=== PATIENT | male | born 1950 | race Caucasian/White ===

== ENCOUNTER 2022-06-10 13:30 | Outpatient (RCR) | payer MEDICARE, BC, SELFPAY ==
[2022-06-04 12:22] LABS: Basophils Absolute Auto 0.03 K/uL (0.00-0.30); Basophils Percent Auto 0.5 % (0.0-3.0); Eosinophils Absolute Auto 0.23 K/uL (0.00-0.50); Eosinophils Percent Auto 4.1 % (0.0-7.0); Hematocrit 29.4 % (37.0-53.0); Hemoglobin* 9.5 gm/dL (13.5-17.5); Immature Granulocytes Abs Auto 0.02 K/uL (0.00-0.30); Immature Granulocytes Pct Auto 0.4 %; Lymphocytes Percent Auto 11.4 % (20-44); Mean Corpuscular HGB Conc 32 gm/dL (32-36); Mean Corpuscular Hemoglobin 26 pg (26-34); Mean Corpuscular Volume 80 fL (80-100); Monocytes Percent Auto 14.3 % (0.0-11.0); Neutrophils Absolute Auto 3.88 K/uL (1.7-7.0); Neutrophils Percent Auto 69.3 % (42.0-72.0); Platelet Count* 210 K/uL (140-440); RDW Coefficient of Variation % 13.9 % (11.5-15.5); Red Blood Count 3.67 m/uL (4.30-5.90)
[2022-06-04 12:30] LABS: Slide Review Reflex No
[2022-06-04 12:45] LABS: Creatinine* 1.3 mg/dL (0.5-1.5); Estimated Glomerular Filt Rate 58 ml/min
[2022-06-04 12:46] LABS: Alanine Aminotransferase* 30 U/L (4-50); Alkaline Phosphatase* 70 U/L (40-150)
--- NOTE | 2022-06-05 07:54 | ONC.NURNOTE ---
labs from 06/04/22 faxed to [facility].
[2022-06-10 14:30] VITALS: BP 159/73; PULSE 74; RESP 16; TEMP 37.2; O2SAT 96
--- NOTE | 2022-06-10 16:47 | ONC.NURNOTE ---
Transplant team called before PICC line removed to be sure that no labs were needed today. Patient had message on phone that news writer read that said no labs needed today. PICC line removed without complications. 42 cm of line removed-tip intact-Upper arm circumference 25cm-external catheter out at site 1.5cm Scant amount of bleeding but patient complained of itchy skin and was itching close to site so patient told to get some lotion on and to be careful not to break skin. Sterile tegaderm applied to site for next 24 hours.
== END 2022-12-01 23:59 | disposition home or self-care (01) ==
LOC: CCIC 13:30
PROVIDERS: PCP Family Medicine; Referring Provider Family Medicine; Visit Provider Clinical Nurse Specialist
DX: J18.9 Pneumonia, unspecified organism (principal)
CPT/HCPCS: 36415; 36589; 36592; 82565; 84075; 84460; 85025; A4221

== ENCOUNTER 2022-07-14 09:09 | Emergency (ER) | payer MEDICARE, BC, SELFPAY ==
[2022-07-14] VITALS (9 sets, daily range): BP systolic 126–150; BP diastolic 68–80; PULSE 61–69; RESP 18; TEMP 36.3; O2SAT 95–99; BMI 21.6
[2022-07-14] MEDS: SODIUM CHLORIDE 0.9 % (FLUSH) 10 ML SYRINGE 5 ML IVF (10:00)
[2022-07-14 10:01] LABS: Troponin, Point-of-Care* 0.01 ng/ml (0.01-0.04)
[2022-07-14 10:02] LABS: Basophils Absolute Auto 0.02 K/uL (0.00-0.30); Basophils Percent Auto 0.3 % (0.0-3.0); Eosinophils Absolute Auto 0.16 K/uL (0.00-0.50); Eosinophils Percent Auto 2.2 % (0.0-7.0); Hematocrit 34.7 % (37.0-53.0); Hemoglobin* 11.3 gm/dL (13.5-17.5); Immature Granulocytes Abs Auto 0.02 K/uL (0.00-0.30); Immature Granulocytes Pct Auto 0.3 %; Lymphocytes Percent Auto 2.7 % (20-44); Mean Corpuscular HGB Conc 33 gm/dL (32-36); Mean Corpuscular Hemoglobin 26 pg (26-34); Mean Corpuscular Volume 79 fL (80-100); Monocytes Percent Auto 4.5 % (0.0-11.0); Platelet Count* 217 K/uL (140-440); RDW Coefficient of Variation % 14.5 % (11.5-15.5); Red Blood Count 4.41 m/uL (4.30-5.90); White Blood Count* 7.35 K/uL (4.50-11.00)
[2022-07-14] MEDS: ONDANSETRON 2 MG/ML inj 4 MG IVP (10:03)
[2022-07-14 10:06] LABS: Lactate* 0.9 mmol/L (0.5-1.9)
[2022-07-14 10:07] LABS: Slide Review Reflex No
--- NOTE | 2022-07-14 10:07 | ED.NURSE ---
pt vomitted small amount, dry heaving. zofran iv given
[2022-07-14 10:17] LABS: Albumin* 4.3 g/dL (3.3-5.0); Chloride* 110 mmol/L (96-114); D Dimer Quantitative* 1.15 ug/ml (0.00-0.50)
[2022-07-14 10:18] LABS: Potassium* 4.9 mmol/L (3.6-5.1); Sodium* 140 mmol/L (135-149)
[2022-07-14 10:20] LABS: Bilirubin Direct* 0.3 mg/dL (0.0-0.5); Bilirubin Total* 0.4 mg/dL (0.1-1.5); Carbon Dioxide* 25 mmol/L (20-32); Creatinine* 1.7 mg/dL (0.5-1.5); Est. Creatinine Clearance* 41.33; Estimated Glomerular Filt Rate 42 ml/min
[2022-07-14 10:21] LABS: Alanine Aminotransferase* 33 U/L (4-50); Alkaline Phosphatase* 77 U/L (40-150); Aspartate Amino Transferase* 44 U/L (12-35); Blood Urea Nitrogen* 46 mg/dL (7-30); Calcium* 9.2 mg/dL (8.4-10.6); Glucose* 113 mg/dL (60-115); Total Protein* 7.4 g/dL (6.0-8.3)
[2022-07-14 10:25] LABS: NT Pro B Type NatriureticPept* 634 pg/mL
[2022-07-14 10:26] LABS: C Reactive Protein* < 0.5 mg/dL (0.5-1.0)
[2022-07-14 10:41] LABS: PCR FLU A Negative PCR FLU A (Negative); PCR FLU B Negative PCR FLU B (Negative); PCR RSV Negative PCR RSV (Negative)
[2022-07-14] MEDS: ASPIRIN 81 MG TAB.CHEW 324 MG PO (10:42)
--- NOTE | 2022-07-14 10:43 | CRLHL7_ITS ---
For Patients: As a result of the Century Cures Act, medical imaging exams and procedure reports are released immediately into your electronic medical record. You may view this report before your referring provider. If you have questions, please contact your health care provider. INDICATION: Chest pain, history of lung transplant TECHNIQUE: CT chest PE was acquired with 95 cc Isovue 370 intravenous contrast. COMPARISON: None. FINDINGS: Heart and vasculature: Contrast opacification of the pulmonary arterial tree is adequate. No sign of pulmonary embolism. Shift of the heart into the left hemithorax. No pericardial effusion. Severe coronary atherosclerosis. Lungs and pleural: No pneumothorax or pleural effusion. Markedly decreased volume of the left hemithorax with diminutive left lung. Prominent honeycombing and interlobular septal thickening consistent with fibrosis. Hyperinflation of the right lung with suture line near the right mainstem bronchus consistent with the history of lung transplantation. Right middle lobe bronchus is not seen with complete atelectasis of the right middle lobe consistent with endobronchial mucous debris. Minimal interstitial emphysema adjacent to the right lower lobe bronchus with ground-glass opacities in the right lower lobe. Slight centrilobular nodularity. Lymph nodes/mediastinum: No mediastinal, hilar, or axillary adenopathy. Chest wall: No masses. Upper abdomen: Hepatic cysts, largest measuring 3.4 centimeters. Cyst at the upper pole of the right kidney measuring 4.2 centimeters. Colonic diverticulosis. Bones: Unremarkable for age. IMPRESSION: 1. No evidence of pulmonary embolus. 2. Ground-glass opacities and centrilobular nodularity within the right lower lobe suspicious for a bronchiolitis or viral pneumonia. Mild interstitial emphysema noted along the right lower lobe bronchus. 3. Apparent right middle lobe bronchus occlusion with complete atelectasis of the right middle lobe. 4. Advanced pulmonary fibrosis left lung with marked volume loss in left hemithorax. Please note that all CT scans at this facility use dose modulation, iterative reconstruction, and/or weight-based dosing when appropriate to reduce radiation dose to as low as reasonably achievable. Dictated by Sanjeev Eduardo MD @ 07/14/2022 12:05:54 PM (Electronically Signed)
--- NOTE | 2022-07-14 10:44 | ED.NURSE ---
pt has been napping. nausea improved. pt took transplant meds from home
[2022-07-14 10:48] LABS: SARS PCR* Negative SARS-CoV-2 (Negative)
[2022-07-14 12:25] LABS: Troponin, Point-of-Care* 0.01 ng/ml (0.01-0.04)
--- NOTE | 2022-07-14 12:59 | ED.GENADULT ---
HPI - General Adult General Date Seen: 07/14/22 Chief complaint: Chest Pain Stated complaint: Chest pain, nausea Time Seen by Provider: 07/14/22 09:23 Source: patient Mode of arrival: ambulatory Limitations: no limitations History of Present Illness HPI narrative: Patient is a 72-year-old male who presents for evaluation of chest tightness with onset this morning at about 6:30 a.m. when he woke up. Symptoms lasted for about an hour and then resolved spontaneously. Describes the pain as a tightness across his chest without radiation, mild to moderate in intensity. He has had occasional symptoms like this in the past, though he has not been seen for it previoulsy. He had some associated nausea, he had 1 small emesis and thinks maybe he felt better after that. He does have a history of lung transplant 2020 secondary to pulmonary fibrosis. He has not had significant shortness of breath, denies pleuritic chest pain or fever. No unusual leg pain or swelling. No history of coronary artery disease. No recent exertional chest pain. He has had some occasional ?cramps in the right upper quadrant, but has not had any of those today. Has not had any abdominal pain or diarrhea. He believes he has had a couple of stress tests in the past couple of years, one before his lung transplant and one since. Related Data Home Medications Medication Instructions Recorded Confirmed acetaminophen 500 mg tablet 500 mg PO Q4-6H PRN 02/07/22 02/07/22 aspirin 81 mg tablet,delayed 81 mg PO DAILY 02/07/22 02/07/22 release azithromycin 250 mg tablet 250 mg PO .UD 02/07/22 02/07/22 calcium citrate 200 mg 2 tab PO BID 02/07/22 02/07/22 calcium-vitamin D3 6.25 mcg (250 unit) tablet cholecalciferol (vitamin D3) 50 50 mcg PO DAILY 02/07/22 02/07/22 mcg (2,000 unit) tablet furosemide 20 mg tablet 20 mg PO DAILY 02/07/22 02/07/22 magnesium oxide 400 mg (241.3 mg 400 mg PO BID 02/07/22 02/07/22 magnesium) tablet melatonin 5 mg capsule 5 mg PO .Bedtime 02/07/22 02/07/22 omeprazole 20 mg tablet,delayed 20 mg PO DAILY 02/07/22 02/07/22 release polyethylene glycol 3350 17 17 g PO DAILY PRN 02/07/22 02/07/22 gram/dose oral powder posaconazole 100 mg tablet,delayed 200 mg PO QDAY 02/07/22 02/07/22 release (Noxafil) prednisone 5 mg tablet 5 mg PO DAILY 02/07/22 02/07/22 rosuvastatin 10 mg tablet 10 mg PO .Bedtime 02/07/22 02/07/22 sirolimus 0.5 mg tablet 0.5 mg PO .Daily With Am Meal 02/07/22 02/07/22 sulfamethoxazole 400 1 tab PO .UD 02/07/22 02/07/22 mg-trimethoprim 80 mg tablet (Bactrim) Allergies Allergy/AdvReac Type Severity Reaction Status Date / Time No Known Drug Allergies Allergy Verified 07/14/22 10:55 Review of Systems Status of ROS: Reports: 10 or more systems reviewed and unremarkable except as noted in History and below [facility] Medical History History of colonic polyps (10/02/17) History of seasonal allergies Surgical History History of bilateral inguinal hernia repair History of colonoscopy (10/02/17) History of repair of right rotator cuff (2016) History of umbilical hernia repair Status post lung transplantation Social History Smoking Status: Never smoker How often do you have a drink containing alcohol: never AUDIT-C Alcohol total score: 0 Non-prescribed substance use: denies use service: Yes Exam Narrative: Exam Narrative: Vital signs as noted above. In general, an alert, nontoxic male, looks comfortable. Head: Normocephalic, atraumatic. Eyes: Pupils are equal reactive. Extraocular movements are full. Conjunctivae are normal. ENT: Mucous membranes are moist. Throat is normal. Neck: Supple without lymphadenopathy. Heart: Regular rate and rhythm. No murmur or rub. Lungs: Clear bilaterally. No increased work of breathing, crackles or wheezes. Abdomen: Soft and nontender. No organomegaly. Specifically no right upper quadrant tenderness, negative Guerra sign. Extremities: Well perfused. No edema. No calf tenderness. Pulses intact. Neurologic: Patient is alert and oriented to person and place. Speech is fluent. Face is symmetric. Moves all extremities equally. Affect: Normal. Skin: Warm and dry. Well perfused. Const: Vital Signs, click to edit/add: Vital Signs - 24 hr 07/14/22 09:23 07/14/22 09:37 07/14/22 09:40 Temperature 97.3 F L Pulse Rate 67 66 Pulse Rate [Right Pulse Oximeter] 63 Respiratory Rate 18 Blood Pressure 133/73 Blood Pressure [Ri ght Upper Arm] 150/80 H Pulse Oximetry 95 98 99 Oxygen Delivery Me thod Room Air 07/14/22 10:41 07/14/22 12:04 07/14/22 12:05 Temperature Pulse Rate 69 69 Pulse Rate [Right Pulse Oximeter] Respiratory Rate Blood Pressure 136/71 149/78 H Blood Pressure [Ri ght Upper Arm] Pulse Oximetry 97 95 Oxygen Delivery Me thod 07/14/22 12:30 07/14/22 13:00 Temperature Pulse Rate 69 66 Pulse Rate [Right Pulse Oximeter] Respiratory Rate Blood Pressure Blood Pressure [Ri ght Upper Arm] Pulse Oximetry 95 96 Oxygen Delivery Me thod Course Course Hospital Course: On arrival, patient had an EKG which by my review shows a normal sinus rhythm, ventricular rate of 65 beats per minute. No acute ST segment changes. T-waves are unremarkable. Patient did have 1 small emesis here, had 4 mg of Zofran IV. Reeves improved. Did not have any further chest discomfort. Troponin was 0 hours and 2-1/2 hours, which would be over 5 hours after onset of his pain. Labs were notable for a normal white blood cell count but with a left shift of 90% neutrophils. Hemoglobin 11.3. D-dimer was elevated at 1.15, metabolic panel notable for a BUN of 46 and a creatinine of 1.7. Electrolytes normal. Lactate 0.9. LFTs unremarkable. CRP was normal. BNP mildly elevated at 634. COVID influenza and RSV were negative. Due to the elevated D-dimer elected to do a CT scan with contrast of the chest. By my review, there were no large central PE. Final radiology report was as follows: 1. No evidence of pulmonary embolus. 2. Ground-glass opacities and centrilobular nodularity within the right lower lobe suspicious for a bronchiolitis or viral pneumonia. Mild interstitial emphysema noted along the right lower lobe bronchus. 3. Apparent right middle lobe bronchus occlusion with complete atelectasis of the right middle lobe. 4. Advanced pulmonary fibrosis left lung with marked volume loss in left hemithorax. I have discussed these findings with Dr. Salinas, on the lung transplant team at [facility]. He said that he believes this is largely baseline for this patient. He also said that the chest symptoms may be baseline for him as well. I discussed all this with the patient and his . We will go ahead and get bedside spirometry here, according to Dr. Salinas his baseline last week was 1.87. Dr. Salinas is going to see him in the next 1-2 weeks at [facility]. We have discussed that at this time I do not have a clear cause for his chest pain. He does not have any abdominal pain or tenderness, does not have clear signs or symptoms suggesting cholecystitis or biliary colic. Troponins are negative x2, EKG is unremarkable. I do not see anything to suggest acute coronary syndrome although we have discussed that this does not rule out the possibility of coronary artery disease. If he has persistent or worsening chest pain, he should return to the emergency department. He does have evidence of some viral changes on CT although he says this is usual for him. His white count is normal although he is significantly immune suppressed. He is afebrile, heart rate is normal, he does not have localizing signs and symptoms for infection. Does not complain of shortness of breath, cough. I think it is reasonable to let him go home. I have stressed that he should have a low threshold for coming back if worsening. Otherwise, he will follow-up with [facility] in the next 1-2 weeks. I have asked him to talk with them about the possibility of testing for coronary artery disease either with stress test or CT coronary angiogram. Vital Signs Vital signs: Initial Vital Signs Temperature 97.3 F L 07/14/22 09:23 Temperature Source Temporal Artery Scan 07/14/22 09:23 Pulse Rate 63 07/14/22 09:23 Respiratory Rate 18 07/14/22 09:23 Blood Pressure 150/80 H 07/14/22 09:23 Blood Pressure Mean 103 07/14/22 09:23 Blood Pressure Position Sitting 07/14/22 09:23 Pulse Oximetry 95 07/14/22 09:23 Oxygen Delivery Method 07/14/22 09:23 Vital Signs Temperature 97.3 F L 07/14/22 09:23 Pulse Rate 63 07/14/22 09:23 Respiratory Rate 18 07/14/22 09:23 Blood Pressure 150/80 H 07/14/22 09:23 Pulse Oximetry 95 07/14/22 09:23 Oxygen Delivery Method 07/14/22 09:23 Temperature 97.3 F L 07/14/22 09:23 Pulse Rate 66 07/14/22 13:00 Respiratory Rate 18 07/14/22 09:23 Blood Pressure 149/78 H 07/14/22 12:05 Pulse Oximetry 96 07/14/22 13:00 Oxygen Delivery Method 07/14/22 09:23 Medical Decision Making Lab Data Labs: Lab Results 07/14/22 07/14/22 07/14/22 Range/Units 09:31 09:31 09:31 WBC 7.35 (4.50-11.00) K/uL RBC 4.41 (4.30-5.90) m/uL Hgb 11.3 L (13.5-17.5) gm/dL Hct 34.7 L (37.0-53.0) % MCV 79 L (80-100) fL MCH 26 (26-34) pg MCHC 33 (32-36) gm/dL RDW Coeff of James 14.5 (11.5-15.5) % Plt Count 217 (140-440) K/uL Neut % (Auto) 90.0 H (42.0-72.0) % Lymph % (Auto) 2.7 L (20-44) % [place] % (Auto) 4.5 (0.0-11.0) % Eos % (Auto) 2.2 (0.0-7.0) % Baso % (Auto) 0.3 (0.0-3.0) % Neut # (Auto) 6.60 (1.7-7.0) K/uL Lymph # (Auto) 0.20 L (0.90-2.90) K/uL [place] # (Auto) 0.30 (0.00-0.90) K/UL Eos # (Auto) 0.16 (0.00-0.50) K/uL Baso # (Auto) 0.02 (0.00-0.30) K/uL D-Dimer Quant (PE/DVT) 1.15 H (0.00-0.50) ug/ml Sodium 140 (135-149) mmol/L Potassium 4.9 (3.6-5.1) mmol/L Chloride 110 (96-114) mmol/L Carbon Dioxide 25 (20-32) mmol/L BUN 46 H (7-30) mg/dL Creatinine 1.7 H (0.5-1.5) mg/dL Estimated Creat Clear 41.33 Estimated GFR 42 ml/min Glucose 113 (60-115) mg/dL Lactate (0.5-1.9) mmol/L Calcium 9.2 (8.4-10.6) mg/dL Total Bilirubin 0.4 (0.1-1.5) mg/dL Direct Bilirubin 0.3 (0.0-0.5) mg/dL AST 44 H (12-35) U/L ALT 33 (4-50) U/L Alkaline Phosphatase 77 (40-150) U/L C-Reactive Protein < 0.5 L (0.5-1.0) mg/dL NT-Pro-B Natriuret Pep 634 pg/mL Total Protein 7.4 (6.0-8.3) g/dL Albumin 4.3 (3.3-5.0) g/dL SARS-CoV-2 (PCR) (Negative) Influenza Type A (PCR) (Negative) Influenza Type B (PCR) (Negative) RSV (PCR) (Negative) POC Troponin I (0.01-0.04) ng/ml 07/14/22 07/14/22 07/14/22 Range/Units 09:31 09:40 09:40 WBC (4.50-11.00) K/uL RBC (4.30-5.90) m/uL Hgb (13.5-17.5) gm/dL Hct (37.0-53.0) % MCV (80-100) fL MCH (26-34) pg MCHC (32-36) gm/dL RDW Coeff of James (11.5-15.5) % Plt Count (140-440) K/uL Neut % (Auto) (42.0-72.0) % Lymph % (Auto) (20-44) % [place] % (Auto) (0.0-11.0) % Eos % (Auto) (0.0-7.0) % Baso % (Auto) (0.0-3.0) % Neut # (Auto) (1.7-7.0) K/uL Lymph # (Auto) (0.90-2.90) K/uL [place] # (Auto) (0.00-0.90) K/UL Eos # (Auto) (0.00-0.50) K/uL Baso # (Auto) (0.00-0.30) K/uL D-Dimer Quant (PE/DVT) (0.00-0.50) ug/ml Sodium (135-149) mmol/L Potassium (3.6-5.1) mmol/L Chloride (96-114) mmol/L Carbon Dioxide (20-32) mmol/L BUN (7-30) mg/dL Creatinine (0.5-1.5) mg/dL Estimated Creat Clear Estimated GFR ml/min Glucose (60-115) mg/dL Lactate 0.9 (0.5-1.9) mmol/L Calcium (8.4-10.6) mg/dL Total Bilirubin (0.1-1.5) mg/dL Direct Bilirubin (0.0-0.5) mg/dL AST (12-35) U/L ALT (4-50) U/L Alkaline Phosphatase (40-150) U/L C-Reactive Protein (0.5-1.0) mg/dL NT-Pro-B Natriuret Pep pg/mL Total Protein (6.0-8.3) g/dL Albumin (3.3-5.0) g/dL SARS-CoV-2 (PCR) Negative SARS-CoV-2 (Negative) Influenza Type A (PCR) Negative PCR FLU A (Negative) Influenza Type B (PCR) Negative PCR FLU B (Negative) RSV (PCR) Negative PCR RSV (Negative) POC Troponin I 0.01 (0.01-0.04) ng/ml 07/14/22 Range/Units 12:08 WBC (4.50-11.00) K/uL RBC (4.30-5.90) m/uL Hgb (13.5-17.5) gm/dL Hct (37.0-53.0) % MCV (80-100) fL MCH (26-34) pg MCHC (32-36) gm/dL RDW Coeff of James (11.5-15.5) % Plt Count (140-440) K/uL Neut % (Auto) (42.0-72.0) % Lymph % (Auto) (20-44) % [place] % (Auto) (0.0-11.0) % Eos % (Auto) (0.0-7.0) % Baso % (Auto) (0.0-3.0) % Neut # (Auto) (1.7-7.0) K/uL Lymph # (Auto) (0.90-2.90) K/uL [place] # (Auto) (0.00-0.90) K/UL Eos # (Auto) (0.00-0.50) K/uL Baso # (Auto) (0.00-0.30) K/uL D-Dimer Quant (PE/DVT) (0.00-0.50) ug/ml Sodium (135-149) mmol/L Potassium (3.6-5.1) mmol/L Chloride (96-114) mmol/L Carbon Dioxide (20-32) mmol/L BUN (7-30) mg/dL Creatinine (0.5-1.5) mg/dL Estimated Creat Clear Estimated GFR ml/min Glucose (60-115) mg/dL Lactate (0.5-1.9) mmol/L Calcium (8.4-10.6) mg/dL Total Bilirubin (0.1-1.5) mg/dL Direct Bilirubin (0.0-0.5) mg/dL AST (12-35) U/L ALT (4-50) U/L Alkaline Phosphatase (40-150) U/L C-Reactive Protein (0.5-1.0) mg/dL NT-Pro-B Natriuret Pep pg/mL Total Protein (6.0-8.3) g/dL Albumin (3.3-5.0) g/dL SARS-CoV-2 (PCR) (Negative) Influenza Type A (PCR) (Negative) Influenza Type B (PCR) (Negative) RSV (PCR) (Negative) POC Troponin I 0.01 (0.01-0.04) ng/ml Discharge Plan Discharge Prescriptions: No Action cholecalciferol (vitamin D3) 50 mcg (2,000 unit) tablet 50 mcg PO DAILY rosuvastatin 10 mg tablet 10 mg PO .Bedtime melatonin 5 mg capsule 5 mg PO .Bedtime acetaminophen 500 mg tablet 500 mg PO Q4-6H PRN Rx Instructions: NO MORE THAN 4000 MG/DAY aspirin 81 mg tablet,delayed release (DR/EC) 81 mg PO DAILY calcium citrate-vitamin D3 200 mg-6.25 mcg (250 unit) tablet 2 tab PO BID furosemide 20 mg tablet 20 mg PO DAILY magnesium oxide 400 mg (241.3 mg magnesium) tablet 400 mg PO BID omeprazole 20 mg tablet,delayed release (DR/EC) 20 mg PO DAILY polyethylene glycol 3350 17 gram/dose powder 17 g PO DAILY PRN sirolimus 0.5 mg tablet 0.5 mg PO .Daily With Am Meal sulfamethoxazole-trimethoprim [Bactrim] 400-80 mg tablet 1 tab PO .UD Rx Instructions: -- azithromycin 250 mg tablet 250 mg PO .UD Rx Instructions: -- prednisone 5 mg tablet 5 mg PO DAILY posaconazole [Noxafil] 100 mg tablet,delayed release (DR/EC) 200 mg PO QDAY Rx Instructions: take with morning meal *NAME BRAND* Follow Up/Referrals: Sekou Anthony MD [Primary Care Provider] -
--- NOTE | 2022-07-26 11:33 | ED_ITS ---
HPI - General Adult General Chief complaint: Chest Pain Stated complaint: Chest pain, nausea Time Seen by Provider: 07/14/22 09:23 Source: patient Mode of arrival: ambulatory Limitations: no limitations History of Present Illness HPI narrative: Patient is a 72-year-old male with underlying Related Data Home Medications Medication Instructions Recorded Confirmed acetaminophen 500 mg tablet 500 mg PO Q4-6H PRN 02/07/22 02/07/22 aspirin 81 mg tablet,delayed 81 mg PO DAILY 02/07/22 02/07/22 release azithromycin 250 mg tablet 250 mg PO .UD 02/07/22 02/07/22 calcium citrate 200 mg 2 tab PO BID 02/07/22 02/07/22 calcium-vitamin D3 6.25 mcg (250 unit) tablet cholecalciferol (vitamin D3) 50 50 mcg PO DAILY 02/07/22 02/07/22 mcg (2,000 unit) tablet furosemide 20 mg tablet 20 mg PO DAILY 02/07/22 02/07/22 magnesium oxide 400 mg (241.3 mg 400 mg PO BID 02/07/22 02/07/22 magnesium) tablet melatonin 5 mg capsule 5 mg PO .Bedtime 02/07/22 02/07/22 omeprazole 20 mg tablet,delayed 20 mg PO DAILY 02/07/22 02/07/22 release polyethylene glycol 3350 17 17 g PO DAILY PRN 02/07/22 02/07/22 gram/dose oral powder posaconazole 100 mg tablet,delayed 200 mg PO QDAY 02/07/22 02/07/22 release (Noxafil) prednisone 5 mg tablet 5 mg PO DAILY 02/07/22 02/07/22 rosuvastatin 10 mg tablet 10 mg PO .Bedtime 02/07/22 02/07/22 sirolimus 0.5 mg tablet 0.5 mg PO .Daily With Am Meal 02/07/22 02/07/22 sulfamethoxazole 400 1 tab PO .UD 02/07/22 02/07/22 mg-trimethoprim 80 mg tablet (Bactrim) Allergies Allergy/AdvReac Type Severity Reaction Status Date / Time No Known Drug Allergies Allergy Verified 07/14/22 10:55 [facility] Medical History History of colonic polyps (10/02/17) History of seasonal allergies Surgical History History of bilateral inguinal hernia repair History of colonoscopy (10/02/17) History of repair of right rotator cuff (2017) History of umbilical hernia repair Status post lung transplantation Social History Smoking Status: Never smoker How often do you have a drink containing alcohol: never AUDIT-C Alcohol total score: 0 Non-prescribed substance use: denies use service: Yes Course Course Hospital Course: On arrival, patient had an EKG which by my review shows a normal sinus rhythm, ventricular rate of 65 beats per minute. No acute ST segment changes. T-waves are unremarkable. Patient did have 1 small emesis here, had 4 mg of Zofran IV. [place] improved. Did not have any further chest discomfort. Troponin was 0 hours and 2-1/2 hours, which would be over 5 hours after onset of his pain. Labs were notable for a normal white blood cell count but with a left shift of 90% neutrophils. Hemoglobin 11.3. D-dimer was elevated at 1.15, metabolic panel notable for a BUN of 46 and a creatinine of 1.7. Electrolytes normal. Lactate 0.9. LFTs unremarkable. CRP was normal. BNP mildly elevated at 634. COVID influenza and RSV were negative. Due to the elevated D-dimer elected to do a CT scan with contrast of the chest. By my review, there were no large central PE. Final radiology report was as follows: 1. No evidence of pulmonary embolus. 2. Ground-glass opacities and centrilobular nodularity within the right lower lobe suspicious for a bronchiolitis or viral pneumonia. Mild interstitial emphysema noted along the right lower lobe bronchus. 3. Apparent right middle lobe bronchus occlusion with complete atelectasis of the right middle lobe. 4. Advanced pulmonary fibrosis left lung with marked volume loss in left hemithorax. I have discussed these findings with Dr. Salinas, on the lung transplant team at [facility]. He said that he believes this is largely baseline for this patient. He also said that the chest symptoms may be baseline for him as well. I discussed all this with the patient and his . We will go ahead and get bedside spirometry here, according to Dr. Salinas his baseline last week was 1.87. Dr. Salinas is going to see him in the next 1-2 weeks at [place]. We have discussed that at this time I do not have a clear cause for his chest pain. He does not have any abdominal pain or tenderness, does not have clear signs or symptoms suggesting cholecystitis or biliary colic. Troponins are negative x2, EKG is unremarkable. I do not see anything to suggest acute coronary syndrome although we have discussed that this does not rule out the possibility of coronary artery disease. If he has persistent or worsening chest pain, he should return to the emergency department. He does have evidence of some viral changes on CT although he says this is usual for him. His white count is normal although he is significantly immune suppressed. He is afebrile, heart rate is normal, he does not have localizing signs and symptoms for infection. Does not complain of shortness of breath, cough. I think it is reasonable to let him go home. I have stressed that he should have a low threshold for coming back if worsening. Otherwise, he will follow-up with [facility] in the next 1-2 weeks. I have asked him to talk with them about the possibility of testing for coronary artery disease either with stress test or CT coronary angiogram. Vital Signs Vital signs: Initial Vital Signs Temperature 97.3 F L 07/14/22 09:23 Temperature Source Temporal Artery Scan 07/14/22 09:23 Pulse Rate 63 07/14/22 09:23 Respiratory Rate 18 07/14/22 09:23 Blood Pressure 150/80 H 07/14/22 09:23 Blood Pressure Mean 103 07/14/22 09:23 Blood Pressure Position Sitting 07/14/22 09:23 Pulse Oximetry 95 07/14/22 09:23 Oxygen Delivery Method 07/14/22 09:23 Vital Signs Temperature 97.3 F L 07/14/22 09:23 Pulse Rate 63 07/14/22 09:23 Respiratory Rate 18 07/14/22 09:23 Blood Pressure 150/80 H 07/14/22 09:23 Pulse Oximetry 95 07/14/22 09:23 Oxygen Delivery Method 07/14/22 09:23 Temperature 97.3 F L 07/14/22 09:23 Pulse Rate 61 07/14/22 13:51 Respiratory Rate 18 07/14/22 13:51 Blood Pressure 126/68 07/14/22 13:51 Pulse Oximetry 98 07/14/22 13:51 Oxygen Delivery Method 07/14/22 13:51 Medical Decision Making Lab Data Labs: Lab Results 07/14/22 07/14/22 07/14/22 Range/Units 09:31 09:31 09:31 WBC 7.35 (4.50-11.00) K/uL RBC 4.41 (4.30-5.90) m/uL Hgb 11.3 L (13.5-17.5) gm/dL Hct 34.7 L (37.0-53.0) % MCV 79 L (80-100) fL MCH 26 (26-34) pg MCHC 33 (32-36) gm/dL RDW Coeff of James 14.5 (11.5-15.5) % Plt Count 217 (140-440) K/uL Neut % (Auto) 90.0 H (42.0-72.0) % Lymph % (Auto) 2.7 L (20-44) % [place] % (Auto) 4.5 (0.0-11.0) % Eos % (Auto) 2.2 (0.0-7.0) % Baso % (Auto) 0.3 (0.0-3.0) % Neut # (Auto) 6.60 (1.7-7.0) K/uL Lymph # (Auto) 0.20 L (0.90-2.90) K/uL [place] # (Auto) 0.30 (0.00-0.90) K/UL Eos # (Auto) 0.16 (0.00-0.50) K/uL Baso # (Auto) 0.02 (0.00-0.30) K/uL D-Dimer Quant (PE/DVT) 1.15 H (0.00-0.50) ug/ml Sodium 140 (135-149) mmol/L Potassium 4.9 (3.6-5.1) mmol/L Chloride 110 (96-114) mmol/L Carbon Dioxide 25 (20-32) mmol/L BUN 46 H (7-30) mg/dL Creatinine 1.7 H (0.5-1.5) mg/dL Estimated Creat Clear 41.33 Estimated GFR 42 ml/min Glucose 113 (60-115) mg/dL Lactate (0.5-1.9) mmol/L Calcium 9.2 (8.4-10.6) mg/dL Total Bilirubin 0.4 (0.1-1.5) mg/dL Direct Bilirubin 0.3 (0.0-0.5) mg/dL AST 44 H (12-35) U/L ALT 33 (4-50) U/L Alkaline Phosphatase 77 (40-150) U/L C-Reactive Protein < 0.5 L (0.5-1.0) mg/dL NT-Pro-B Natriuret Pep 634 pg/mL Total Protein 7.4 (6.0-8.3) g/dL Albumin 4.3 (3.3-5.0) g/dL SARS-CoV-2 (PCR) (Negative) Influenza Type A (PCR) (Negative) Influenza Type B (PCR) (Negative) RSV (PCR) (Negative) POC Troponin I (0.01-0.04) ng/ml 07/14/22 07/14/22 07/14/22 Range/Units 09:31 09:40 09:40 WBC (4.50-11.00) K/uL RBC (4.30-5.90) m/uL Hgb (13.5-17.5) gm/dL Hct (37.0-53.0) % MCV (80-100) fL MCH (26-34) pg MCHC (32-36) gm/dL RDW Coeff of James (11.5-15.5) % Plt Count (140-440) K/uL Neut % (Auto) (42.0-72.0) % Lymph % (Auto) (20-44) % [place] % (Auto) (0.0-11.0) % Eos % (Auto) (0.0-7.0) % Baso % (Auto) (0.0-3.0) % Neut # (Auto) (1.7-7.0) K/uL Lymph # (Auto) (0.90-2.90) K/uL [place] # (Auto) (0.00-0.90) K/UL Eos # (Auto) (0.00-0.50) K/uL Baso # (Auto) (0.00-0.30) K/uL D-Dimer Quant (PE/DVT) (0.00-0.50) ug/ml Sodium (135-149) mmol/L Potassium (3.6-5.1) mmol/L Chloride (96-114) mmol/L Carbon Dioxide (20-32) mmol/L BUN (7-30) mg/dL Creatinine (0.5-1.5) mg/dL Estimated Creat Clear Estimated GFR ml/min Glucose (60-115) mg/dL Lactate 0.9 (0.5-1.9) mmol/L Calcium (8.4-10.6) mg/dL Total Bilirubin (0.1-1.5) mg/dL Direct Bilirubin (0.0-0.5) mg/dL AST (12-35) U/L ALT (4-50) U/L Alkaline Phosphatase (40-150) U/L C-Reactive Protein (0.5-1.0) mg/dL NT-Pro-B Natriuret Pep pg/mL Total Protein (6.0-8.3) g/dL Albumin (3.3-5.0) g/dL SARS-CoV-2 (PCR) Negative SARS-CoV-2 (Negative) Influenza Type A (PCR) Negative PCR FLU A (Negative) Influenza Type B (PCR) Negative PCR FLU B (Negative) RSV (PCR) Negative PCR RSV (Negative) POC Troponin I 0.01 (0.01-0.04) ng/ml 07/14/22 Range/Units 12:08 WBC (4.50-11.00) K/uL RBC (4.30-5.90) m/uL Hgb (13.5-17.5) gm/dL Hct (37.0-53.0) % MCV (80-100) fL MCH (26-34) pg MCHC (32-36) gm/dL RDW Coeff of James (11.5-15.5) % Plt Count (140-440) K/uL Neut % (Auto) (42.0-72.0) % Lymph % (Auto) (20-44) % [place] % (Auto) (0.0-11.0) % Eos % (Auto) (0.0-7.0) % Baso % (Auto) (0.0-3.0) % Neut # (Auto) (1.7-7.0) K/uL Lymph # (Auto) (0.90-2.90) K/uL [place] # (Auto) (0.00-0.90) K/UL Eos # (Auto) (0.00-0.50) K/uL Baso # (Auto) (0.00-0.30) K/uL D-Dimer Quant (PE/DVT) (0.00-0.50) ug/ml Sodium (135-149) mmol/L Potassium (3.6-5.1) mmol/L Chloride (96-114) mmol/L Carbon Dioxide (20-32) mmol/L BUN (7-30) mg/dL Creatinine (0.5-1.5) mg/dL Estimated Creat Clear Estimated GFR ml/min Glucose (60-115) mg/dL Lactate (0.5-1.9) mmol/L Calcium (8.4-10.6) mg/dL Total Bilirubin (0.1-1.5) mg/dL Direct Bilirubin (0.0-0.5) mg/dL AST (12-35) U/L ALT (4-50) U/L Alkaline Phosphatase (40-150) U/L C-Reactive Protein (0.5-1.0) mg/dL NT-Pro-B Natriuret Pep pg/mL Total Protein (6.0-8.3) g/dL Albumin (3.3-5.0) g/dL SARS-CoV-2 (PCR) (Negative) Influenza Type A (PCR) (Negative) Influenza Type B (PCR) (Negative) RSV (PCR) (Negative) POC Troponin I 0.01 (0.01-0.04) ng/ml Discharge Plan Discharge Clinical Impression: Lung transplant status, Chest pain Patient Disposition: Home, Self-Care Condition: Improved Instructions: Chest Pain (DC) Additional Instructions: Follow-up with Dr. Salinas in the next 1-2 weeks as discussed. Please ask about further evaluation for chest pain at [place] to include stress test or CT coronary angiogram to evaluate for possible coronary artery disease. If at any time you have severe or persistent chest pain in the meantime, return to the emergency department. Prescriptions: No Action cholecalciferol (vitamin D3) 50 mcg (2,000 unit) tablet 50 mcg PO DAILY rosuvastatin 10 mg tablet 10 mg PO .Bedtime melatonin 5 mg capsule 5 mg PO .Bedtime acetaminophen 500 mg tablet 500 mg PO Q4-6H PRN Rx Instructions: NO MORE THAN 4000 MG/DAY aspirin 81 mg tablet,delayed release (DR/EC) 81 mg PO DAILY calcium citrate-vitamin D3 200 mg-6.25 mcg (250 unit) tablet 2 tab PO BID furosemide 20 mg tablet 20 mg PO DAILY magnesium oxide 400 mg (241.3 mg magnesium) tablet 400 mg PO BID omeprazole 20 mg tablet,delayed release (DR/EC) 20 mg PO DAILY polyethylene glycol 3350 17 gram/dose powder 17 g PO DAILY PRN sirolimus 0.5 mg tablet 0.5 mg PO .Daily With Am Meal sulfamethoxazole-trimethoprim [Bactrim] 400-80 mg tablet 1 tab PO .UD Rx Instructions: -W- azithromycin 250 mg tablet 250 mg PO .UD Rx Instructions: -W- prednisone 5 mg tablet 5 mg PO DAILY posaconazole [Noxafil] 100 mg tablet,delayed release (DR/EC) 200 mg PO QDAY Rx Instructions: take with morning meal *NAME BRAND* Follow Up/Referrals: Sekou Anthony MD [Primary Care Provider] - Stand Alone Forms: [facility] Info Instructions
== END 2022-07-14 14:08 | disposition home or self-care (01) ==
PROVIDERS: Emergency Provider Emergency Medicine; PCP Family Medicine
DX: R07.9 Chest pain, unspecified (principal)
CPT/HCPCS: 36415; 71260; 80048; 80076; 83605; 83880; 84484; 85025; 85379; 86140; 87502; 87634; 87635; 93005; 94761; 96374; 99284; 99285; A9270; J2405; Q9967

== ENCOUNTER 2023-05-30 00:16 | Emergency (ER) | payer MEDICARE, BC, SELFPAY ==
[2023-05-30 00:26] VITALS: BP 150/82; PULSE 69; RESP 20; TEMP 37.3; O2SAT 95; BMI 21.1
--- NOTE | 2023-05-30 00:31 | CRLHL7_ITS ---
For Patients: As a result of the Century Cures Act, medical imaging exams and procedure reports are released immediately into your electronic medical record. You may view this report before your referring provider. If you have questions, please contact your health care provider. INDICATION: Hemoptysis. TECHNIQUE: Chest radiograph 2 views COMPARISON: 04/22/2022 FINDINGS: Mediastinum: The mediastinum is normal in appearance. The heart silhouette is normal in size and morphology. Lung: Volume loss is seen in the left lung with coarse reticular interstitial infiltrates throughout the left lung, likely due to cicatricial atelectasis and fibrosis. Mild airspace opacities are present in the right lung base. No sign of pleural effusion seen. No pneumothorax is identified. Bone and Soft tissue: Unremarkable for age. IMPRESSION: 1. Mild airspace opacities are present in the right lung base. These findings can be seen with atelectasis, pneumonia, or pulmonary hemorrhage given the patient`s history. Dictated by Eusebio Ring MD @ 05/30/2023 1:12:46 AM Dictated by: Eusebio Ring MD @ 05/30/2023 01:12:49 (Electronically Signed)
--- NOTE | 2023-05-30 00:32 | ED_ITS ---
HPI - General Adult General Chief complaint: Unspecified Complaint, Adult Stated complaint: coughing up blood Time Seen by Provider: 05/30/23 00:27 History of Present Illness HPI narrative: Patient is a 72-year-old gentleman who is undergoing chemotherapy for T-cell lymphoma and who had a lung transplant 3 years ago for pulmonary fibrosis who presents with single episode of hemoptysis tonight. Patient feels well other than the fatigue from chemotherapy. He has no fevers no chills no night sweats no shortness of breath. He describes no chest pain diaphoresis nausea or vomiting. Patient upon arrival as normal saturation and normal vital signs. Related Data Home Medications Medication Instructions Recorded Confirmed acetaminophen 500 mg tablet 500 mg PO Q4-6H PRN 02/07/22 05/30/23 aspirin 81 mg tablet,delayed 81 mg PO DAILY 02/07/22 05/30/23 release azithromycin 250 mg tablet 250 mg PO .UD 02/07/22 05/30/23 calcium citrate 200 mg 2 tab PO BID 02/07/22 05/30/23 calcium-vitamin D3 6.25 mcg (250 unit) tablet cholecalciferol (vitamin D3) 50 50 mcg PO DAILY 02/07/22 05/30/23 mcg (2,000 unit) tablet furosemide 20 mg tablet 20 mg PO DAILY 02/07/22 02/07/22 magnesium oxide 400 mg (241.3 mg 400 mg PO BID 02/07/22 02/07/22 magnesium) tablet melatonin 5 mg capsule 5 mg PO .Bedtime 02/07/22 05/30/23 omeprazole 20 mg tablet,delayed 20 mg PO DAILY 02/07/22 05/30/23 release polyethylene glycol 3350 17 17 g PO DAILY PRN 02/07/22 05/30/23 gram/dose oral powder posaconazole 100 mg tablet,delayed 200 mg PO QDAY 02/07/22 05/30/23 release (Noxafil) prednisone 5 mg tablet 5 mg PO DAILY 02/07/22 05/30/23 rosuvastatin 10 mg tablet 10 mg PO .Bedtime 02/07/22 05/30/23 sirolimus 0.5 mg tablet 0.5 mg PO .Daily With Am Meal 02/07/22 05/30/23 sulfamethoxazole 400 1 tab PO .UD 02/07/22 02/07/22 mg-trimethoprim 80 mg tablet (Bactrim) budesonide-formoterol HFA 80 inhalation 05/30/23 mcg-4.5 mcg/actuation aerosol inhaler carvedilol 6.25 mg tablet mg PO DAILY 05/30/23 sertraline 50 mg tablet 50 mg PO DAILY 05/30/23 05/30/23 trazodone 50 mg tablet 100 mg PO QPM PRN 05/30/23 05/30/23 Allergies Allergy/AdvReac Type Severity Reaction Status Date / Time No Known Drug Allergies Allergy Verified 07/14/22 10:55 Review of Systems Status of ROS: Reports: 10 or more systems reviewed and unremarkable except as noted in History and below [facility] Medical History (Updated 05/30/23 @ 01:39 by Ash Adams MD) Lymphoma ?C85.90 - Non-Hodgkin lymphoma, unspecified, unspecified site (ICD-10) History of seasonal allergies ?Z88.9 - Allergy status to unspecified drugs, medicaments and biological substances (ICD-10) History of colonic polyps (10/02/17) ?Z86.010 - Personal history of colonic polyps (ICD-10) Surgical History Status post lung transplantation ?Z94.2 - Lung transplant status (ICD-10) History of umbilical hernia repair ?Z98.890 - Other specified postprocedural states (ICD-10) ?Z87.19 - Personal history of other diseases of the digestive system (ICD-10) History of repair of right rotator cuff (2017) ?Z98.890 - Other specified postprocedural states (ICD-10) History of colonoscopy (10/02/17) ?Z98.890 - Other specified postprocedural states (ICD-10) History of bilateral inguinal hernia repair ?Z98.890 - Other specified postprocedural states (ICD-10) ?Z87.19 - Personal history of other diseases of the digestive system (ICD-10) Social History Smoking Status: Never smoker How often do you have a drink containing alcohol: never AUDIT-C Alcohol total score: 0 Non-prescribed substance use: denies use service: Yes Exam Narrative: Exam Narrative: EXAM GENERAL: Patient appears comfortable and well. EYES: No scleral icterus. ENT: Tympanic membranes and oropharynx normal. THYROID: no thyroid nodules or thyromegaly. LYMPH: No supraclavicular or cervical lymphadenopathy. SKIN: Visible skin seen during exam normal or with benign process only. EXT: No dependent lower extremity pedal edema. HEART: With distant heart sounds regular rate LUNGS: Clear to auscultation bilaterally with no crackles or wheezes. ABD: Soft, non tender, non distended. PSYCH: Good eye contact, speech is not pressured. Const: Vital Signs, click to edit/add: Vital Signs - 24 hr 05/30/23 00:26 Temperature 99.1 F Pulse Rate [Left] 69 Respiratory Rate 20 Blood Pressure [Ri ght Upper Arm] 150/82 H Pulse Oximetry 95 Oxygen Delivery Me thod Room Air Course Course ED Course: Patient is a 72-year-old presents with hemoptysis with significant comorbidities. I did send off coags CBC basic metabolic panel chest x-ray. I do not believe he needs EKG or troponin. I do think that D-dimer would be less than helpful due to his lung transplant mainly to a false-positive. I find his risk of pulmonary embolism very low at this point. Vital Signs Vital signs: Initial Vital Signs Temperature 99.1 F 05/30/23 00:26 Temperature Source Temporal Artery Scan 05/30/23 00:26 Pulse Rate 69 05/30/23 00:26 Pulse Rhythm Regular 05/30/23 00:26 Respiratory Rate 20 05/30/23 00:26 Blood Pressure 150/82 H 05/30/23 00:26 Blood Pressure Mean 104 05/30/23 00:26 Blood Pressure Position Semi-Fowlers 05/30/23 00:26 Pulse Oximetry 95 05/30/23 00:26 Oxygen Delivery Method Room Air 05/30/23 00:26 Vital Signs Temperature 99.1 F 05/30/23 00:26 Pulse Rate 69 05/30/23 00:26 Respiratory Rate 20 05/30/23 00:26 Blood Pressure 150/82 H 05/30/23 00:26 Pulse Oximetry 95 05/30/23 00:26 Oxygen Delivery Method Room Air 05/30/23 00:26 Temperature 99.1 F 05/30/23 00:26 Pulse Rate 69 05/30/23 00:26 Respiratory Rate 20 05/30/23 00:26 Blood Pressure 150/82 H 05/30/23 00:26 Pulse Oximetry 95 05/30/23 00:26 Oxygen Delivery Method Room Air 05/30/23 00:26 Medical Decision Making MDM Narrative Medical decision making narrative: Patient is a 72-year-old gentleman comes in no acute distress with limited amount of hemoptysis. Patient's comorbidities include lung transplant 3 years ago for pulmonary fibrosis as well as chemotherapy currently for T-cell lymphoma. Patient is x-ray shows transplant right lung. He does have chronic anemia noted which is stable. Electrolytes show chronic renal insufficiency with creatinine of 1.6. I believe this to be chronic as well. Coags are unremarkable. New consider CT of the chest and D-dimer however and think that likelihood PE given his largely asymptomatic state would be counterproductive. This time reassurance is offered. He will continue his outpatient regimen follow-up with his primary physician as needed. Differential Diagnosis Differential Diagnosis: Pulmonary infarct complications of chemotherapy implications of lung trans Lab Data Labs: Lab Results 05/30/23 Range/Units 00:47 WBC 5.54 (4.50-11.00) K/uL RBC 3.05 L (4.30-5.90) m/uL Hgb 7.7 L* (13.5-17.5) gm/dL Hct 24.9 L (37.0-53.0) % MCV 82 (80-100) fL MCH 25 L (26-34) pg MCHC 31 L (32-36) gm/dL RDW Coeff of James 13.8 (11.5-15.5) % Plt Count 104 L (140-440) K/uL Neut % (Auto) 89.9 H (42.0-72.0) % Lymph % (Auto) 2.3 L (20-44) % [place] % (Auto) 7.2 (0.0-11.0) % Eos % (Auto) 0.0 (0.0-7.0) % Baso % (Auto) 0.2 (0.0-3.0) % Neut # (Auto) 5.00 (1.7-7.0) K/uL Lymph # (Auto) 0.10 L (0.90-2.90) K/uL [place] # (Auto) 0.40 (0.00-0.90) K/UL Eos # (Auto) 0.00 (0.00-0.50) K/uL Baso # (Auto) 0.01 (0.00-0.30) K/uL Abs Immat Gran (auto) 0.02 (0.00-0.30) K/uL Imm/Tot Granulo (auto) 0.4 % INR 0.98 (0.91-1.10) Sodium 138 (135-149) mmol/L Potassium 5.0 (3.6-5.1) mmol/L Chloride 106 (96-114) mmol/L Carbon Dioxide 24 (20-32) mmol/L Anion Gap 8 (7-15) mEq/L BUN 39 H (7-30) mg/dL Creatinine 1.6 H (0.5-1.5) mg/dL Estimated Creat Clear 42.84 Estimated GFR 46 ml/min Glucose 107 (60-115) mg/dL Calcium 8.1 L (8.4-10.6) mg/dL Discharge Plan Discharge Clinical Impression: Hemoptysis Patient Disposition: Home, Self-Care Condition: Stable Instructions: Coughing Up Blood (Hemoptysis) (ED) Additional Instructions: Continue current medications Follow-up with your doctor as scheduled Activity Level: No Restrictions Discharge Diet: Regular Prescriptions: No Action cholecalciferol (vitamin D3) 50 mcg (2,000 unit) tablet 50 mcg PO DAILY rosuvastatin 10 mg tablet 10 mg PO .Bedtime melatonin 5 mg capsule 5 mg PO .Bedtime acetaminophen 500 mg tablet 500 mg PO Q4-6H PRN Rx Instructions: NO MORE THAN 4000 MG/DAY aspirin 81 mg tablet,delayed release (DR/EC) 81 mg PO DAILY calcium citrate-vitamin D3 200 mg-6.25 mcg (250 unit) tablet 2 tab PO BID furosemide 20 mg tablet 20 mg PO DAILY magnesium oxide 400 mg (241.3 mg magnesium) tablet 400 mg PO BID omeprazole 20 mg tablet,delayed release (DR/EC) 20 mg PO DAILY polyethylene glycol 3350 17 gram/dose powder 17 g PO DAILY PRN sirolimus 0.5 mg tablet 0.5 mg PO .Daily With Am Meal sulfamethoxazole-trimethoprim [Bactrim] 400-80 mg tablet 1 tab PO .UD Rx Instructions: azithromycin 250 mg tablet 250 mg PO .UD Rx Instructions: -- prednisone 5 mg tablet 5 mg PO DAILY posaconazole [Noxafil] 100 mg tablet,delayed release (DR/EC) 200 mg PO QDAY Rx Instructions: take with morning meal *NAME BRAND* carvedilol 6.25 mg tablet PO DAILY trazodone 50 mg tablet 100 mg PO QPM PRN sertraline 50 mg tablet 50 mg PO DAILY budesonide-formoterol 80-4.5 mcg/actuation HFA aerosol inhaler INHALATION Patient Comments: [NO ORIGINAL SIG] Follow Up/Referrals: Sekou Anthony MD [Primary Care Provider] - Stand Alone [facility]: [facility] Info Inst[facility]
[2023-05-30 00:57] LABS: Basophils Absolute Auto 0.01 K/uL (0.00-0.30); Basophils Percent Auto 0.2 % (0.0-3.0); Hematocrit 24.9 % (37.0-53.0); Immature Granulocytes Abs Auto 0.02 K/uL (0.00-0.30); Immature Granulocytes Pct Auto 0.4 %; Lymphocytes Percent Auto 2.3 % (20-44); Mean Corpuscular HGB Conc 31 gm/dL (32-36); Mean Corpuscular Hemoglobin 25 pg (26-34); Mean Corpuscular Volume 82 fL (80-100); Monocytes Percent Auto 7.2 % (0.0-11.0); Neutrophils Percent Auto 89.9 % (42.0-72.0); Platelet Count* 104 K/uL (140-440); RDW Coefficient of Variation % 13.8 % (11.5-15.5); Red Blood Count 3.05 m/uL (4.30-5.90); White Blood Count* 5.54 K/uL (4.50-11.00)
[2023-05-30 01:05] LABS: Hemoglobin* 7.7 gm/dL (13.5-17.5); Slide Review Reflex No
[2023-05-30 01:07] LABS: Chloride* 106 mmol/L (96-114)
[2023-05-30 01:08] LABS: Sodium* 138 mmol/L (135-149)
[2023-05-30 01:10] LABS: Creatinine* 1.6 mg/dL (0.5-1.5); Est. Creatinine Clearance* 42.84; Estimated Glomerular Filt Rate 46 ml/min
[2023-05-30 01:11] LABS: Anion Gap 8 mEq/L (7-15); Blood Urea Nitrogen* 39 mg/dL (7-30); Calcium* 8.1 mg/dL (8.4-10.6); Carbon Dioxide* 24 mmol/L (20-32); Glucose* 107 mg/dL (60-115)
[2023-05-30 01:36] LABS: INR 0.98 (0.91-1.10); Prothrombin Time 13.6 Seconds
== END 2023-05-30 01:55 | disposition home or self-care (01) ==
LOC: ED 01:49
PROVIDERS: Emergency Provider Internal Medicine; PCP Family Medicine
DX: R04.2 Hemoptysis (principal)
CPT/HCPCS: 36415; 71046; 80048; 85025; 85610; 95992; 99283; 99284